=== PATIENT | female | born 2000 | race African-American/Black ===

== ENCOUNTER 2024-11-29 20:21 | Emergency (ER) | payer OTHER ==
[2024-11-29 21:19] LABS: Bilirubin Negative (Negative); Clarity Slightly Cloudy (Clear); Glucose, Urine (Dipstick) 100 mg/dL (Negative); Ketone, Urine Negative (Negative); Leukocyte Trace (Negative); Nitrite Negative (Negative); Protein, Urine (Dipstick) Negative (Neg-Trace); Specific Gravity, Urine 1.015 (1.005-1.030); Urobilinogen 0.2 mg/dL (Less than 2); pH, Urine 7.5 (5.0-9.0)
[2024-11-29 21:20] LABS: Bacteria/HPF None Seen HPF (None Seen); Blood, Urine Negative (Negative); CAUTI Indications for Culture Pregnancy; RBC/HPF None Seen HPF (0-3); Squamous Epithelial None Seen HPF (0-3); WBC/HPF None Seen HPF (0-3)
[2024-11-29 21:21] LABS: Urine Culture Reflex Yes Yes
== END 2024-11-29 21:38 | disposition home or self-care (01) ==
LOC: NAV ERS 20:21
DX: O20.0 Threatened abortion (principal); Z3A.11 11 weeks gestation of pregnancy; Z87.891 Personal history of nicotine dependence
CPT/HCPCS: 81001; 86900; 86901; 87086